=== PATIENT | male | born 1960 | race Two or more races ===

== ENCOUNTER 2024-11-23 12:44 | Emergency (ER) | payer MEDICAID, SELFPAY ==
[2024-11-23 13:02] VITALS: BP 173/91; PULSE 89; RESP 18; TEMP 36.9; O2SAT 97
--- NOTE | 2024-11-23 13:17 | XR_ITS ---
Examination: Foot, left, 3 views Technique: AP, oblique, lateral views foot, 3 views Date and time of exam: November 23, 2024 1320 hours INDICATIONS: Redness swelling and pain involving the lateral foot beginning 2 months ago. FINDINGS: Soft tissue swelling at the fifth metatarsophalangeal joint Suspicious for early cortical bone destruction involving the lateral cortex of the distal fifth metatarsal No fracture IMPRESSION: Suspicious for early osteomyelitis distal fifth metatarsal Suggest MRI foot without contrast follow-up
--- NOTE | 2024-11-23 13:18 | PD.EDRME ---
Rapid Medical Screening Exam RME Arrival date/time: 11/23/24 12:44 64-year-old male presents to the emergency department today for complaints of foot infection ongoing x 2 weeks Chief Complaint: Ankle/Foot Injury Time Seen by Provider: 11/23/24 12:52 Vital signs: Vital Signs Temperature 98.4 F 11/23/24 13:02 Pulse Rate 89 11/23/24 13:02 Respiratory Rate 18 11/23/24 13:02 Blood Pressure 173/91 H 11/23/24 13:02 Pulse Oximetry (%) 97 11/23/24 13:02 Oxygen Delivery Method Room Air 11/23/24 13:02
[2024-11-23 13:33] LABS: Lactate (Lactic Acid) 1.1 mMol/L (0.4-2.0)
[2024-11-23 13:35] LABS: Basophils # (Auto) 0.1 Thou/mm3 (0.0-0.2); Basophils % (Auto) 1 % (0-2.5); Eosinophils # (Auto) 0.1 Thou/mm3 (0.0-0.5); Eosinophils % (Auto) 1 % (0-10); Hematocrit 46.2 % (41.0-53.0); Hemoglobin 15.9 g/dL (13.5-16.0); Immature Granulocytes Auto 0.03 Thou/mm3 (0.00-0.00); Lymphocytes # (Auto) 1.6 Thou/mm3 (1.0-4.8); Lymphocytes % (Auto) 21 % (10-50); Mean Corpuscular HGB Conc 34.4 g/dl (31.0-37.0); Mean Corpuscular Hemoglobin 28.9 pg (25.0-35.0); Mean Corpuscular Volume 84 fL (80-100); Monocytes # (Auto) 0.4 Thou/mm3 (0.0-0.8); Monocytes % (Auto) 6 % (0-12); Neutrophils # (Auto) 5.2 Thou/mm3 (1.8-7.7); Neutrophils % (Auto) 71 % (37-80); Nucleated Red Blood Cell # 0.00 Thou/mm3 (0.00-0.00); Nucleated Red Blood Cell % 0 /100 WBC (0); Platelet Count 193 Thou/mm3 (140-440); RDW Standard Deviation 36.3 fL (35.1-43.9); Red Blood Count 5.51 Miln/mm3 (4.50-5.90); White Blood Count 7.3 Thou/mm3 (3.8-10.6)
[2024-11-23 14:11] LABS: Alanine Aminotransferase 11 U/L (10-49); Albumin, Serum 4.6 gm/dL (3.4-4.8); Albumin/Globulin Ratio 1.5 (1.2-2.2); Alkaline Phosphatase 113 U/L (46-116); Anion Gap 11 (7-16); Aspartate Amino Transferase 19 U/L (0-34); BUN/Creatinine Ratio 12 Ratio (12-20); Bilirubin,Total 0.6 mg/dL (0.3-1.2); Blood Urea Nitrogen 13 mg/dL (9-23); C-Reactive Protein < 0.5 mg/dL (0.0-0.9); Calcium 9.8 mg/dL (8.3-10.6); Calcium (Corrected) 9.8 mg/dL (8.5-10.1); Carbon Dioxide 23.9 mMol/L (20.0-31.0); Chloride 100 mMol/L (98-107); Creatinine (Component) 1.1 mg/dL (0.6-1.3); Globulin 3.0 gm/dL (2.3-3.5); Glucose 125 mg/dL (74-106); Osmolality,Calculated 271 (275-295); Potassium 4.4 mMol/L (3.4-5.1); Procalcitonin 0.04 ng/ml (0.0-0.49); Sodium 135 mMol/L (136-145); Total Protein 7.6 gm/dL (5.7-8.2); eGFR > 60 See Note
--- NOTE | 2024-11-23 16:29 | PD.EDANKLE ---
Lower Extremity Injury RME/HPI General Chief Complaint: Ankle/Foot Injury Stated Complaint: LEFT FOOT PAIN Time Seen by Provider: 11/23/24 12:52 Arrival date/time: 11/23/24 12:44 RME / HPI RME / HPI Narrative: \ 64-year-old male significant history of diabetes presents to the emergency department today for complaints of foot infection getting worse x 2 weeks, more on the left lateral aspect of the foot, severity mild. Patient has been applying Betadine on a daily basis. No fever noted patient is ambulatory initially seen by PCP and was given antibiotic that was 2 months ago. Currently not taking any antibiotic. He had a chronic wound there for more than 2 months now. Related Data Home Medications ?Medication ?Instructions ?Recorded ?Confirmed metformin 1,000 mg tablet 1 tab PO QDAY 10/18/21 10/18/21 sitagliptin phosphate 100 mg 1 tab PO QDAY 10/18/21 10/21/21 tablet (Januvia) Previous Rx's ?Medication ?Instructions ?Recorded atorvastatin 40 mg tablet 40 mg PO QPM #30 tabs 10/21/21 amoxicillin 875 mg-potassium 1 tab PO BID #14 tabs 07/23/22 clavulanate 125 mg tablet ibuprofen 600 mg tablet 600 mg PO Q8H PRN pain #20 tabs 07/23/22 ibuprofen 600 mg tablet 600 mg PO Q8H PRN fever or pain 08/02/22 #30 tabs meloxicam 7.5 mg tablet 7.5 mg PO QDAY #10 tabs 01/11/24 amoxicillin 875 mg-potassium 1 tab PO BID #30 tabs 11/23/24 clavulanate 125 mg tablet Allergies Allergy/AdvReac Type Severity Reaction Status Date / Time No Known Allergies Allergy Unverified 10/25/22 07:52 Review of Systems Review of Systems Narrative Review of Systems: Review of system reviewed and within normal limits except mentioned in HPI ED Exam Narrative Physical exam: VITAL SIGNS: Reviewed. GENERAL APPEARANCE: Alert and interactive, follows commands, no acute distress, HEAD AND FACE: Non-traumatic. ENT: PERRL, pink conjunctivitis, eyelid no trauma, Mucous membrane moist. NECK: Supple, nontender, no nuchal rigidity. CHEST: No tenderness, no crepitus, no paradoxical movement, no retractions. LUNGS: Clear, well ventilated, symmetric, no rales, no wheezing, no ronchi, no stridor, good breath sounds bilaterally. HEART: Regular rate, regular rhythm, no murmur, no gallops. ABDOMEN: Soft, positive bowel sounds, nondistended, no guarding, nontender, no rebound, no masses, RECTAL: Deferred. GENITAL: Deferred. NEUROLOGICAL: Gross motor function intact sensory function intact, Appropriate for age. MUSCULOSKELETAL: low back nontender, full range of motion. EXTREMITIES: Chronic wound noted on the left lateral aspect of the foot, no drainage noted, no exposure of bone. Nontender, full range of motion. SKIN: Color pink, dry, no rash, no lacerations, no abrasions, no contusions. LYMPHATICS: Deferred. Course Quality Measures none Orders Category Date Time Status XR foot comp LT min 3V Stat Exams 11/23/24 13:17 Completed Blood Culture (Lab) Stat Lab 11/23/24 13:23 Received CBC Stat Lab 11/23/24 13:24 Results CMP [Comprehensive Metabolic Panel] Stat Lab 11/23/24 13:24 Completed CRP [C-Reactive Protein] Stat Lab 11/23/24 13:24 Completed ESR [Sed Rate (ESR)] Stat Lab 11/23/24 13:24 Results Lactic Acid [Lactate (Lactic Acid)] Stat Lab 11/23/24 13:24 Completed Procalcitonin Stat Lab 11/23/24 13:24 Completed Vital Signs Vital signs: Vital Signs Temperature 98.4 F 11/23/24 13:02 Pulse Rate 89 11/23/24 13:02 Respiratory Rate 18 11/23/24 13:02 Blood Pressure 173/91 H 11/23/24 13:02 Pulse Oximetry (%) 97 11/23/24 13:02 Oxygen Delivery Method Room Air 11/23/24 13:02 Extremity Injury, Lower MDM Narrative MDM Narrative:: \ 64-year-old male significant history of diabetes presents to the emergency department today for complaints of foot infection getting worse x 2 weeks, more on the left lateral aspect of the foot, severity mild. Patient has been applying Betadine on a daily basis. No fever noted patient is ambulatory initially seen by PCP and was given antibiotic that was 2 months ago. Currently not taking any antibiotic. He had a chronic wound there for more than 2 months now. Laboratory workup back unremarkable, no leukocytosis noted. Patient's blood sugar was noted to be 125. X-ray of the foot showed possible early osteomyelitis left fifth metatarsal. Patient was sent home on Augmentin for 2 weeks, and advised him to follow-up closely with copper miner bl[facility]. Patient stable pressure at home. Patient data External records reviewed:: None Clinical information provided by:: patient Social determinants that could affect healthcare access:: none Patient has the following chronic illnesses:: Diabetes mellitus How is presenting disease/condition affected by chronic disease/condition?: exacerbated by Evaluation data The following diagnostics were reviewed and interpreted by me:: lab results and radiology exam(s) Lab and/or radiology exams considered but not ordered:: None Interpretation Summary: See results MDM Medications / Prescriptions Medications or Prescriptions considered but not ordered:: None Medication administrations:: None Consultations Consultation(s) initiated? (list below): No Diagnosis Extremity Injury, Lower Differential Diagnosis: other (Diabetic foot infection, osteomyelitis fifth metatarsal, chronic wound foot) Most likely diagnosis given after review of the tests above:: Diabetic foot infection, osteomyelitis fifth metatarsal Admission Indicated Admission indicated?: not indicated Admission Request Was there a request for admission?: No Disposition Plan Disposition Plan: Discharge Discharge Attestation Discharge Attestation: The patient was given an opportunity to ask questions and understood the discharge instructions. Discharge instructions specifically effects, indications for sooner follow up or return to the emergency department, and the expected course of current diagnosis. Patient condition: Stable Discharge Plan Plan Patient Disposition: HOME (Self Care) Discharge Disposition comment: Stable Prescriptions/Referrals Prescriptions/Med Rec: New amoxicillin-pot clavulanate 875-125 mg tablet 1 tab PO BID Qty: 30 0RF No Action metformin 1,000 mg tablet 1 tab PO QDAY Januvia 100 mg tablet 1 tab PO QDAY atorvastatin 40 mg tablet 40 mg PO QPM Qty: 30 0RF meloxicam 7.5 mg tablet 7.5 mg PO QDAY Qty: 10 0RF amoxicillin-pot clavulanate 875-125 mg tablet 1 tab PO BID Qty: 14 0RF ibuprofen 600 mg tablet 600 mg PO Q8H PRN (Reason: pain) Qty: 20 0RF ibuprofen 600 mg tablet 600 mg PO Q8H PRN (Reason: fever or pain) Qty: 30 0RF Rx Instructions: Directions in Citizen [place] Referrals: No Primary/Family,Physician [Primary Care Provider] - In 1 week Problem List Clinical Impression: Chronic wound of extremity, Osteomyelitis of metatarsal Patient/Caregiver Discharge Instructions Discharge Activity: activity as tolerated Education Materials: ED Wound Check (Infection) Additional Instructions: Thank you for the opportunity for serving you today. You are stable for discharged . You are advised to: Follow-up with your PCP in 1 to 2 days Return to ED for worsening of symptoms Increase oral fluids Take medication as prescribed As your PCP to refer you to a copper miner bl[facility] in 1 to 2 days Continue doing dressing with Betadine Print Language: Citizen [place] Stand Alone Forms: Dorothy Award Info., Patient Portal Info Letter PA/BOX GLUER Supervising Physician PA/BOX GLUER Supervising Physician: MD Pedro
[2024-11-23 16:39] LABS: Sed Rate (ESR) 33 mm/hr (0-20)
== END 2024-11-23 17:54 | disposition home or self-care (01) ==
PROVIDERS: Nurse Practitioner Primary Care; Emergency Provider Family Medicine
DX: E11.69 Type 2 diabetes mellitus with other specified complication (principal); M86.9 Osteomyelitis, unspecified; Z79.84 Long term (current) use of oral hypoglycemic drugs
CPT/HCPCS: 36415; 73630; 80053; 83605; 84145; 85025; 85652; 86140; 87040; 99283

== ENCOUNTER 2024-12-11 07:59 | Emergency (ER) | payer MEDICAID, SELFPAY ==
[2024-12-11 08:07] VITALS: BP 139/90; PULSE 89; RESP 18; TEMP 36.9; O2SAT 99; BMI 29.2
--- NOTE | 2024-12-11 08:28 | EDNOTE_ITS ---
<Statement entered by Ashley Saavedra MD - 12/12/24 16:05> As co-signing physician, I was present and available for consult prn. I concur with the plan and care as documented by the midlevel provider. Lower Extremity Injury RME/HPI General Chief Complaint: Ankle/Foot Injury Stated Complaint: RETURN FOR EVAL OF FOOT INFECTION Time Seen by Provider: 12/11/24 08:03 Source: patient Arrival date/time: 12/11/24 07:59 64-year-old male with a history of hyperlipidemia, type 2 diabetes, presents to the emergency room for a wound recheck to his left foot Mode of arrival: ambulatory Limitations: no limitations Related Data Home Medications ?Medication ?Instructions ?Recorded ?Confirmed metformin 1,000 mg tablet 1 tab PO QDAY 10/18/2110/18 sitagliptin phosphate 100 mg 1 tab PO QDAY 10/18/21 tablet (Januvia) Previous Rx's ?Medication ?Instructions ?Recorded atorvastatin 40 mg tablet 40 mg PO QPM #30 tabs amoxicillin 875 mg-potassium 1 tab PO BID #14 tabs clavulanate 125 mg tablet ibuprofen 600 mg tablet 600 mg PO Q8H PRN pain #20 t abs 07/23/22 ibuprofen 600 mg tablet 600 mg PO Q8H PRN fever or p ain 08/02/22 #30 tabs meloxicam 7.5 mg tablet 7.5 mg PO QDAY #10 tabs 11/0 07/29 amoxicillin 875 mg-potassium 1 tab PO BID #30 tabs clavulanate 125 mg tablet Allergies Allergy/AdvReac Type Severity Reaction Status Date / Time No Known Allergies Allergy Verified 12/11/24 08:04 Review of Systems Review of Systems Systems Reviewed: All systems reviewed, normal except as documented Constitutional Constitutional: Reports system reviewed and no additional complaints, except as documented, Denies fatigue, Denies fever(s), Denies headache(s) and Denies weakness Eyes Eyes: Reports system reviewed and no additional complaints, except as documented, Denies blurry vision and Denies change in vision ENT Ears, Nose, Mouth, and Throat: Reports system reviewed and no additional complaints, except as documented, Denies otalgia, Denies headache(s), Denies nasal congestion, Denies throat swelling and Denies vertigo Cardiovascular Cardiovascular: Reports system reviewed and no additional complaints, except as documented, Denies chest pain, Denies dyspnea and Denies dyspnea on exertion Respiratory Respiratory: Reports system reviewed and no additional complaints, except as documented, Denies chest congestion, Denies cough, Denies dyspnea, Denies dyspnea on exertion and Denies wheezing Gastrointestinal Gastrointestinal: Reports system reviewed and no additional complaints, except as documented, Denies abdominal pain, Denies cramping, Denies nausea and Denies vomiting Genitourinary Genitourinary: Reports system reviewed and no additional complaints, except as documented, Denies dysuria and Denies hematuria Musculoskeletal Musculoskeletal: Reports system reviewed and no additional complaints, except as documented and Denies back pain Integumentary/Breasts Skin/Breast: Reports system reviewed and no additional complaints, except as documented and Denies wounds Neurologic Neurologic: Reports system reviewed and no additional complaints, except as documented, Denies confusion, Denies headache(s), Denies lack of coordination, Denies vertigo and Denies weakness Psychiatric Psychiatric: Reports system reviewed and no additional complaints, except as documented, Denies anxiety, Denies confusion, Denies depression, Denies paranoia, Denies suicidal ideation and Denies tactile hallucinations Endocrine Endocrine: Reports system reviewed and no additional complaints, except as documented and Denies fatigue Hematologic/Lymphatic Hematologic/Lymphatic: Reports system reviewed and no additional complaints, except as documented and Denies lymphadenopathy Allergic/Immunologic Allergic/Immunologic: Reports system reviewed and no additional complaints, except as documented, Denies throat swelling, Denies urticaria and Denies wheezing Past Medical History Past Medical History CARDIAC: Positive Hypercholesterolemia and Hypertension; Negative Cardiac Disorders or Congestive Heart Failure RESPIRATORY: Negative Chronic Obstructive Pulmonary Disease (COPD) or Asthma GENITOURINARY: Negative Renal Disease ENDOCRINE: Positive Diabetes Mellitus Type 2; Negative Diabetes Mellitus Type 1 HEMATOLOGIC: Negative Sickle Cell Disease Social History SMOKING STATUS: Never smoker SUBSTANCE USE: does not use ED Exam General Limitations: Present no limitations General appearance: Present alert and in no apparent distress Head Head exam: Present atraumatic Eye Eye exam: Present normal appearance, PERRL and EOMI ENT ENT exam: Present normal exam, normal oropharynx and mucous membranes moist Neck Neck exam: Present normal inspection, full ROM and trachea midline Chest Chest inspection: Present normal inspection and symmetric chest wall rise Respiratory Respiratory exam: Present normal lung sounds bilaterally Cardiovascular Cardiovascular exam: Present regular rate, normal rhythm and normal heart sounds Abdominal Exam Abdominal exam: Present soft and normal bowel sounds Extremities Exam Extremities exam: Present normal inspection and full ROM Expanded Lower Extremity Exam Hip/Pelvis exam: Present normal inspection Upper leg exam: Present normal inspection Knee exam: Present normal inspection Lower leg exam: Present normal inspection Ankle exam: Present normal inspection Foot/toe exam: Present normal inspection and full ROM; Absent tenderness, swelling or erythema Bottom foot image: 2 1. There is scabbing to the area. There is no erythema there is no warmth to the touch the wound is dry and flaky. Patient states he is taking antibiotics. Back Exam Back exam: Present normal inspection and full ROM Neurological Exam Neurological exam: Present alert, oriented X3 and CN II-XII intact Psychiatric Psychiatric exam: Present normal affect and normal mood Skin Skin exam: Present warm, dry, intact and normal color Course Quality Measures none Vital Signs Vital signs: Vital Signs Temperature 98.5 F 12/11/24 08:07 Pulse Rate 89 12/11/24 08:07 Respiratory Rate 18 12/11/24 08:07 Blood Pressure 139/90 H 12/11/24 08:07 Pulse Oximetry (%) 99 12/11/24 08:07 Oxygen Delivery Method Room Air 12/11/24 08:07 Extremity Injury, Lower MDM Narrative MDM Narrative:: 64-year-old male with a history of hyperlipidemia, type 2 diabetes, presents to the emergency room for a wound recheck to his left foot Patient is hemodynamically stable and in no apparent distress. Patient is not febrile not tachycardic not tachypneic Patient is seen here before 2 weeks ago for evaluation of his foot at that time the patient states it was warm to the touch it was tender and it looked infected. Today the patient states the foot is no longer bothering him there are no signs of infection there is no tenderness or any swelling or any warmth or any pus draining. Patient states his foot feels a lot better and he has a follow-up appointment with his podiatry coming up. Patient states he has been taking his antibiotics as prescribed and has been following up with his primary care provider Patient was discharged and educated to follow-up with primary care provider in the next 24 to 48 hours and return to the emergency room for any evidence of worsening signs or symptoms Patient data External records reviewed:: [facility] previous records Clinical information provided by:: patient Social determinants that could affect healthcare access:: none Patient has the following chronic illnesses:: No chronic illness How is presenting disease/condition affected by chronic disease/condition?: no chronic disease Evaluation data The following diagnostics were reviewed and interpreted by me:: lab results and radiology exam(s) Lab and/or radiology exams considered but not ordered:: Labs and radiology exams considered and ordered Interpretation Summary: N/A Medications / Prescriptions Medications or Prescriptions considered but not ordered:: No medication given Medication administrations:: No medication given Consultations Consultation(s) initiated? (list below): No Diagnosis Extremity Injury, Lower Differential Diagnosis: other (Encounter for wound recheck) Most likely diagnosis given after review of the tests above:: Encounter for wound recheck Admission Indicated Admission indicated?: not indicated Admission Request Was there a request for admission?: No Disposition Plan Disposition Plan: Discharge Discharge Attestation Discharge Attestation: The patient and all family members were given an opportunity to ask questions and understood the discharge instructions. Discharge instructions specifically effects, indications for sooner follow up or return to the emergency department, and the expected course of current diagnosis. Patient condition: Stable Discharge Plan Plan Patient Disposition: HOME (Self Care) Discharge Disposition comment: Stable Prescriptions/Referrals Prescriptions/Med Rec: No Action metformin 1,000 mg tablet 1 tab PO QDAY Januvia 100 mg tablet 1 tab PO QDAY atorvastatin 40 mg tablet 40 mg PO QPM Qty: 30 0RF meloxicam 7.5 mg tablet 7.5 mg PO QDAY Qty: 10 0RF amoxicillin-pot clavulanate 875-125 mg tablet 1 tab PO BID Qty: 14 0RF ibuprofen 600 mg tablet 600 mg PO Q8H PRN (Reason: pain) Qty: 20 0RF ibuprofen 600 mg tablet 600 mg PO Q8H PRN (Reason: fever or pain) Qty: 30 0RF Rx Instructions: Directions in [place] amoxicillin-pot clavulanate 875-125 mg tablet 1 tab PO BID Qty: 30 0RF Problem List Clinical Impression: Encounter for wound re-check Patient/Caregiver Discharge Instructions Education Materials: ED Wound Check (No Infection) Additional Instructions: Por favor, consulte con [place]ling m?dico de cabecera en las pr?ximas 24 a 48 horas. [place] herida parece cicatrizada y no infectada en lucius momento. Contin?e tomando los antibi?ticos seg?n lo prescrito. Por favor, consulte con [place] m?dico de cabecera, ya que podr?a ser necesario derivarlo a un pod?logo para un tratamiento adicional. Si observa cualquier signo de empeoramiento de los signos o s?ntomas, acuda a urgencias de inmediato. Print Language: [place] Stand Alone Forms: Dorothy Award Info., Patient Portal Info Letter PA/STORE MANAGER Supervising Physician PA/STORE MANAGER Supervising Physician: Dr. Styles
== END 2024-12-11 11:12 | disposition home or self-care (01) ==
LOC: SERX 08:41
PROVIDERS: Emergency Provider Nurse Practitioner Family
DX: Z48.00 Encounter for change or removal of nonsurgical wound dressing (principal)
CPT/HCPCS: 99281